=== PATIENT | female | born 1950 ===

== ENCOUNTER 2022-02-17 07:18 | Day surgery (SDC) | payer OTHER ==
[~2022-02-17] VITALS: Ht 162.6 cm; Wt 75.6 kg
[~2022-02-17 07:18] MED LIST: B Complete1 EACH; CHOL10002 PO; ERGO400; LEVSOD100 PO; Vitamin C100 M1
--- NOTE | 2022-02-17 08:34 | NUR ---
02/17/22 0834 YVETTE GARCÍA 4 ATTEMPTS AT IV. FIRST ATTEMPT BY MA IN R HAND MISSED. SECOND ATTEMPT BY MA IN R FOREARM UNABLE TO ADVANCE. THIRD ATTEMPT BY MA IN R FOREARM UNABLE TO ADVANCE. FOURTH ATTEMPT BY IN L FOREARM SUCCESSFUL.
== END 2022-02-17 09:35 | disposition home or self-care (01) ==
LOC: ORSCSDS 07:18
PROVIDERS: Internal Medicine Gastroenterology
PROC: 0DBN8ZX Excision of Sigmoid Colon, Via Natural or Artificial Opening Endoscopic, Diagnostic (ICD-10-PCS; principal; 2022-02-17 08:45)
PROC: 0DBL8ZX Excision of Transverse Colon, Via Natural or Artificial Opening Endoscopic, Diagnostic (ICD-10-PCS; principal; 2022-02-17 08:45)
DX: Z12.11 Encounter for screening for malignant neoplasm of colon (principal); Z86.010 Personal history of colon polyps; D12.3 Benign neoplasm of transverse colon; D12.5 Benign neoplasm of sigmoid colon; K57.30 Diverticulosis of large intestine without perforation or abscess without bleeding; K64.8 Other hemorrhoids; I10 Essential (primary) hypertension; E03.9 Hypothyroidism, unspecified; Z79.899 Other long term (current) drug therapy
CPT/HCPCS: 88305; J2704; J7120

== ENCOUNTER → 2022-05-25 | Outpatient (CLI) | payer OTHER | LOC: LAB 13:41 → LAB SHORT 13:41 | DX: R30.0 Dysuria (principal) | CPT/HCPCS: 87077; 87086; 87186 ==

== ENCOUNTER 2022-12-15 07:40 | Day surgery (SDC) | payer OTHER ==
[2022-12-19] MEDS ORDERED: LISI20 PO (15:39)
== END 2022-12-28 22:42 | disposition home or self-care (01) ==
LOC: MOI US 07:40
DX: C50.311 Malignant neoplasm of lower-inner quadrant of right female breast (principal)
CPT/HCPCS: 19285; 77065; A4648

== ENCOUNTER 2022-12-21 07:59 | Day surgery (SDC) | payer OTHER ==
[~2022-12-21] VITALS: Ht 162.6 cm; Wt 77.2 kg
[2022-12-21] VITALS (14 sets, daily range): BP systolic 126–162; BP diastolic 71–85
[~2022-12-21 07:59] MED LIST changes: +LISI20 PO
--- NOTE | 2022-12-21 10:04 | NUR ---
History, Chart, Medications and Allergies reviewed before start of procedure.Lungs clear T/O to Auscultation. Pre-Op teaching done. Pt verbalizes understanding. AT BEDSIDE JUST PRIOR TO GOING TO THE OR. EYE GLASSES AND HAIR CLIPS TAKEN TO PACU
--- NOTE | 2022-12-21 14:20 | NUR ---
1305 RECEIVED PT FROM PACU. SLEEPY, ENC DB AND COUGH SATS DROPPING INTO 80'S WITH INC SPIROMETER SATS GO UP TO HIGH 90'S. RT BREAST INCISION WITH STERI STRIP AND DONAL BREAST BINDER IN PLACE 1330 ENC INC SPIROMETER 1345 AMBULATE TO BR STEADY ON FEET. SATS CONTUOUS AT 95-99% NOW
== END 2022-12-21 23:07 | disposition home or self-care (01) ==
LOC: NM 07:59 → ORSCMMR 07:59 → NM 09:00 → ORSCMMR 23:07 → NM 12-25 23:07
PROVIDERS: Surgery
PROC: 0HBT0ZZ Excision of Right Breast, Open Approach (ICD-10-PCS; principal; 2022-12-21 10:00)
PROC: 07B50ZX Excision of Right Axillary Lymphatic, Open Approach, Diagnostic (ICD-10-PCS; principal; 2022-12-21 10:00)
DX: C50.311 Malignant neoplasm of lower-inner quadrant of right female breast (principal); Z17.0 Estrogen receptor positive status [ER+]; D36.0 Benign neoplasm of lymph nodes; I10 Essential (primary) hypertension; E03.9 Hypothyroidism, unspecified; Z79.899 Other long term (current) drug therapy
CPT/HCPCS: 38792; 76098; 88307; 88342; A9270; A9520; J0690; J2250; J2704; J2795; J3010; J7120; Q9968